=== PATIENT | female | born 1975 | race Caucasian/White ===

== ENCOUNTER → 2017-02-28 | Outpatient (CLI) | payer MEDICARE ==
--- NOTE | 2017-03-01 08:05 | CT ---
EXAMINATION TYPE: CT abdomen w con DATE OF EXAM: 02/28/2017 COMPARISON: Ultrasound abdomen 02/14/2017 INDICATION: Pt states of upper abdominal pain and pancreatic lesions. DLP: 631.5 mGycm, Automated exposure control for dose reduction was used. CONTRAST: 100 mL of Omnipaque 300. Study performed with Oral Contrast TECHNIQUE: Axial images were obtained from above the diaphragm to the pubic rami in the axial plane a t 5 mm thick sections. Reconstructed images are reviewed on the computer in the coronal plane. FINDINGS: Limited CT sections are obtained the lung bases. The lung bases are clear. CT ABDOMEN: Liver: Normal Spleen: Normal Pancreas: A 0.5 cm hypoechoic area, series 3 image 24 is a normal appearance on delayed images series 5. This does not correspond to the size measurements of the ultrasound which measured 4.8 x 4.2 x 3. 3 cm on the ultrasound. Please see below for discussion of a mass adjacent to the pancreas. Adrenal glands: The adrenal glands are normal. Gallbladder: Not identified Kidneys: No masses are evident. No hydronephrosis is present. No cysts are present. Delayed images were obtained through the kidneys, which remain unremarkable. Aorta: Vascular calcification is within the aorta. Inferior vena cava: Normal. Loops of bowel distended with oral contrast are normal. Limited contrast within the duodenum. There a re loops of bowel lacking oral contrast limiting their evaluation. Ultrasound images are reviewed. On the hypoechoic mass in question appears to be within the tail of t he pancreas on ultrasound. With attention to the pancreas on this current CT examination a suspicious mass within the pancreas is not identified on arterial or delayed contrast imaging. However, posteri or to the splenic vein is a slightly hypoechoic lobular area external to the Gerota's fascia and ante rior to the mid right kidney. This potentially could be related to the left adrenal gland extending i nferiorly from the more normal-appearing left adrenal gland superiorly. This area measures 2.9 x 1.3 cm in the axial plane and approximately 2.8 x 4.0 cm in the coronal plane. Additional evaluation with contrast MRI is recommended. IMPRESSIONS: 1. Discrete pancreatic mass is not clearly identified corresponding to the ultrasound findings. Ther e may be a masslike area posterior to the pancreas tail potentially related to the inferior aspect of the adrenal gland. Recommend additional evaluation with MRI with contrast. 2. Subtle hypoechoic area within the anterior portion of the tail of the pancreas on the early phase contrast imaging of this area could be further evaluated with the contrast MRI. This does not corresp ond to the size measurements from the ultrasound.
== END | disposition home or self-care (01) ==
LOC: RADCTMAIN 18:47
PROVIDERS: ATTEND Family Medicine
DX: R19.09 Other intra-abdominal and pelvic swelling, mass and lump (principal)
CPT/HCPCS: 74160; Q9967

== ENCOUNTER → 2017-03-19 | Outpatient (CLI) | payer MEDICARE ==
[2017-03-19 20:32] LABS: Blood Urea Nitrogen 8 mg/dL (7-17); Non-African American GFR(MDRD) >60 (>60 ml/min/1.73 sqM)
--- NOTE | 2017-03-19 21:28 | MR ---
EXAMINATION TYPE: MR abdomen wo/w con DATE OF EXAM: 03/19/2017 COMPARISON: CT abdomen February 28, 2017. Outside abdominal ultrasound 10/17/2016. HISTORY: Abnormal finding on Ultrasound and Cat Scan CONTRAST: Standard multiplanar, multisequence MRI departmental protocol utilizing 20 mL intravenous MultiHance gadolinium contrast. FINDINGS: Pancreas is overall normal in size. No worrisome solid or cystic mass or fluid collection i s present with particular attention to area of ultrasound concern pancreatic tail. Immediately adjace nt to the pancreatic tail there are 2 prominent splenule is redemonstrated measuring up to 1.5 cm in size. Perhaps this is what accounts for ultrasound abnormality. There is slightly lobulated prominenc e in the distal body that is isointense to pancreas on all sequences felt to reflect asymmetry of mcfarland creas not worrisome mass, this is felt to be questionable area on CT. Lung bases are grossly clear. There is tiny 3 mm simple appearing cyst right hepatic lobe on image 29 . Remainder of liver shows no worrisome mass or ductal dilatation. There is stone filled somewhat contracted gallbladder redemonstrated. The spleen and both adrenal glands are felt within normal limits. No worrisome renal mass or hydronep hrosis is seen bilaterally. There is no suspicious bowel dilatation present. There is heterogeneous endplate changes with disc sp pravin narrowing and spurring at L4-L5 level. No concerning abdominal fluid collection is seen. No great er than 1 cm abdominal adenopathy is noted. IMPRESSION: No worrisome distal pancreatic or pancreatic tail mass identified to correspond to the ultrasound and /or CT abnormality. The lesion of ultrasound concern likely reflects adjacent prominent splenule in s plenic hilum.
== END | disposition home or self-care (01) ==
LOC: RADMRIMAIN 19:42
PROVIDERS: ATTEND Family Medicine
DX: R19.09 Other intra-abdominal and pelvic swelling, mass and lump (principal); Z13.9 Encounter for screening, unspecified
CPT/HCPCS: 82565; 84520; 74183; A9577

== ENCOUNTER → 2017-05-09 | Outpatient (CLI) | payer MEDICARE ==
[2017-05-09 16:05] LABS: ALT 45 U/L (9-52); AST 24 U/L (14-36); Alkaline Phosphatase 71 U/L (38-126); Amylase <30 U/L (30-110); Bilirubin, Delta 0.3 mg/dL (0.0-0.2); Total Bilirubin 0.3 mg/dL (0.2-1.3); Total Protein 6.7 g/dL (6.3-8.2)
== END | disposition home or self-care (01) ==
LOC: LABWHC1 15:29
PROVIDERS: ATTEND Surgery
DX: K80.10 Calculus of gallbladder with chronic cholecystitis without obstruction (principal)
CPT/HCPCS: 36415; 80076; 82150; 83690

== ENCOUNTER 2017-05-14 07:48 | Day surgery (SDC) | payer MEDICARE ==
[2017-05-13 14:23] VITALS: BMI 31.3
[~2017-05-14 07:48] MED LIST: DEXAMETHASONE SOD PHOSPHATE 10 MG/ML 1 ML VIAL IV ONE; HEPARIN SODIUM,PORCINE 5,000 UNIT/ML 1 ML VIAL SQ ONE; MIDAZOLAM 2 MG/2 ML VIAL IV PRN; ONDANSETRON 4 MG/2 ML VIAL IVP ONE; SCOPOLAMINE 1.5MG/72HR PATCH TRANSDERM ONE; ceFAZolin 2 GM in SODIUM CHLORIDE 0.9% 100 ML IVPB ONE
[2017-05-14 08:13] VITALS: RESP 16
[2017-05-14] MEDS: LACTATED RINGERS 1,000 ML IV SCH ×2 (08:31→11:02)
[2017-05-14] MEDS ORDERED: HEPARIN SODIUM,PORCINE 5,000 UNIT/ML 1 ML VIAL SQ ONE (10:30)
[2017-05-14] MEDS ORDERED: LIDOCAINE 1% (PF) 10 MG/ML (30 ML SDV) SQ ONE ×2 (10:54)
[2017-05-14] MEDS ORDERED: PROPOFOL 10 MG/ML 20 ML VIAL IV ONE (11:04)
[2017-05-14] MEDS ORDERED: NEOSTIGMINE 1 MG/ML 10 ML VIAL ONE (11:04)
[2017-05-14] MEDS ORDERED: SUCCINYLCHOLINE CHLORIDE 100 MG/5 ML SYR IV ONE (11:04)
[2017-05-14] MEDS ORDERED: fentaNYL (PF) 50 MCG/ML 2 ML AMP ONE (11:04)
[2017-05-14] MEDS ORDERED: GLYCOPYRROLATE 0.2 MG/ML 2 ML VIAL ONE (11:04)
[2017-05-14] MEDS ORDERED: ROCURONIUM BROMIDE 10 MG/ML 10 ML VIAL IV ONE (11:04)
[2017-05-14] MEDS ORDERED: LACTATED RINGERS 1,000 ML IV ONE (11:39)
[2017-05-14] MEDS: HYDROmorphone 1 MG/ML 1 ML SYRINGE IVP PRN ×2 (13:02→13:07)
[2017-05-14] MEDS ORDERED: MEPERIDINE 50 MG/ML SYRINGE IVP ONE (13:25)
[2017-05-14 14:14] VITALS: TEMP 99.4
[2017-05-14 14:36] VITALS: BP 128/72; PULSE 92
--- NOTE | 2017-05-14 16:08 | P.OP ---
Date of Procedure: 05/14/17 Preoperative Diagnosis: Symptomatic cholelithiasis Postoperative Diagnosis: Same Procedure(s) Performed: Laparoscopic cholecystectomy Implants: Anesthesia: KENA Surgeon: Lila Coleman Physiotherapy Assistant #1: Debbi Oliver Estimated Blood Loss (ml): 10 Pathology: other (The gallbladder) Condition: stable Disposition: PACU Indications for Procedure: Symptomatic cholelithiasis Operative Findings: Cholelithiasis Description of Procedure: Patient was taken to the operating room and following induction of general anesthesia the abdomen was prepped and draped in a sterile fashion. A #5 years needle was placed in the left upper quadrant. The abdomen was insufflated to 15 mmHg pressure. A 5 trocar using an Optiview was introduced. The abdomen was evaluated. A #5 port was placed in the supraumbilical area. The camera was changed to this port. #10 trocar was placed in the left upper quadrant. 2# 5 ports were placed in the right side of the abdomen through these the gallbladder was retracted. Patient was placed in reverse Trendelenburg and rotated to the left. The area of the fundus the gallbladder was dissected free. The cystic duct and cystic artery were identified. These were stapled and divided. A posterior artery was identified and this was stapled and divided. The gallbladder was taken down from its peritoneal attachments to the liver bed using electrocautery device. The gallbladder was placed in a Pleatman sac and brought up through the #10 port site. Following this after we were assured that hemostasis was attained a Nish Bray was utilized to close the defect in the fascia at the #10 port site. All trocar sites were removed. The subcutaneous tissues were then closed using 4-0 Monocryl. The patient tolerated the procedure in stable condition. All instrument and sponge counts were correct at the end of the case.
== END 2017-05-14 14:45 | disposition home or self-care (01) ==
LOC: OR 07:48
PROVIDERS: ATTEND Surgery
DX: K80.10 Calculus of gallbladder with chronic cholecystitis without obstruction (principal); F41.9 Anxiety disorder, unspecified; J45.909 Unspecified asthma, uncomplicated; K58.9 Irritable bowel syndrome, unspecified; F40.00 Agoraphobia, unspecified; I10 Essential (primary) hypertension; F17.210 Nicotine dependence, cigarettes, uncomplicated; K21.9 Gastro-esophageal reflux disease without esophagitis; E03.9 Hypothyroidism, unspecified; F31.30 Bipolar disorder, current episode depressed, mild or moderate severity, unspecified; Z88.8 Allergy status to other drugs, medicaments and biological substances; Z79.51 Long term (current) use of inhaled steroids; Z79.899 Other long term (current) drug therapy; Z82.49 Family history of ischemic heart disease and other diseases of the circulatory system
CPT/HCPCS: 81025; 88304; 47562; J2250; J1644; J1100; J2710; J2175; J0690; J2405; J2001; J3010; J1170; J0330; J2704

== ENCOUNTER → 2017-10-29 | Outpatient (CLI) | payer MEDICARE, OTHER ==
--- NOTE | 2017-10-30 11:16 | MM ---
Reason for exam: screening (asymptomatic). Last mammogram was performed 1 year and 11 months ago. History: Benign excisional biopsy of the right breast, October 2014. Benign US RT VAD breast biopsy of the right breast, November 13, 2013. Benign cyst aspiration of the right breast, 2010. Physical Findings: A clinical breast exam by your physician is recommended on an annual basis and results should be correlated with mammographic findings. MG 3D Screening Mammo W/Cad Bilateral CC and MLO view(s) were taken. Prior study comparison: December 01, 2015, bilateral MG 3d screening mammo w/cad. July 12, 2015, right breast MG 3d diag mammo w/cad RT. The breast tissue is heterogeneously dense. This may lower the sensitivity of mammography. Stable benign calcifications. There is no discrete abnormality. No significant changes when compared with prior studies. ASSESSMENT: Benign, BI-RAD 2 RECOMMENDATION: Routine screening mammogram of both breasts in 1 year.
== END | disposition home or self-care (01) ==
LOC: RADMAMWWP 11:18
PROVIDERS: ATTEND Family Medicine
DX: Z12.31 Encounter for screening mammogram for malignant neoplasm of breast (principal)
CPT/HCPCS: 77063; 77067

== ENCOUNTER → 2019-04-30 | Outpatient (CLI) | payer MEDICARE, OTHER ==
--- NOTE | 2019-04-30 10:19 | XR ---
EXAMINATION TYPE: XR chest 2V DATE OF EXAM: 04/30/2019 COMPARISON: NONE HISTORY: Chest pain TECHNIQUE: Frontal and lateral views of the chest are obtained. FINDINGS: There is no focal air space opacity, pleural effusion, or pneumothorax seen. The cardiac silhouette size is within normal limits. The osseous structures are intact. Surgical clips in the u pper abdomen are noted on the lateral view. IMPRESSION: No acute cardiopulmonary process.
--- NOTE | 2019-04-30 11:26 | EST ---
EXERCISE STRESS DATE OF SERVICE: 04/30/2019 AGE: 43 SEX: Female HT: 65" WT: 180 pounds PROTOCOL: Walter STAGE: III DURATION OF EXERCISE: 7 minutes HEART RATE REST: 86 BLOOD PRESSURE REST: 147/75 MAXIMUM HEART RATE ACHIEVED: 165 MAXIMUM BLOOD PRESSURE: 200/86 85% MPHR: 150 100% MPHR: 176 METS: 8 INDICATIONS: Chest pain. CLINICAL INFORMATION: Baseline EKG shows sinus rhythm, normal axis, normal intervals. Patient exercised on Walter protocol for a total of 7 minutes achieving 8 METs, 93% of predicted maximal heart rate without chest pain. At peak exercise, there was 0.[address]-segment depression noted in the inferolateral leads. CONCLUSIONS: 1. Average exercise tolerance. 2. Nondiagnostic EKG changes with exercise. 3. Consider stress echo or stress Cardiolite study for further evaluation. CLAREL / IJN: [id number] /
== END ==
LOC: RADNMMAIN 08:35
PROVIDERS: ATTEND Family Medicine
DX: R07.89 Other chest pain (principal); R06.02 Shortness of breath
CPT/HCPCS: 71046; 93017

== ENCOUNTER → 2019-05-20 | Outpatient (CLI) | payer MEDICARE, OTHER ==
--- NOTE | 2019-05-22 09:30 | MM ---
Reason for exam: screening (asymptomatic). Last mammogram was performed 1 year and 7 months ago. History: Benign excisional biopsy of the right breast, October 2014. Benign US RT VAD breast biopsy of the right breast, November 13, 2013. Benign cyst aspiration of the right breast, 2010. Physical Findings: A clinical breast exam by your physician is recommended on an annual basis and results should be correlated with mammographic findings. MG 3D Screening Mammo W/Cad Bilateral CC and MLO view(s) were taken. Prior study comparison: October 29, 2017, bilateral MG 3d screening mammo w/cad. December 01, 2015, bilateral MG 3d screening mammo w/cad. The breast tissue is heterogeneously dense. This may lower the sensitivity of mammography. Increasing superior right breast density. Some underlying nodularity is suggested on 3D MLO. Ultrasound recommended. ASSESSMENT: Incomplete: need additional imaging evaluation, BI-RAD 0 RECOMMENDATION: Ultrasound of the right breast. [facility] will attempt to contact patient to return for ultrasound.
== END | disposition home or self-care (01) ==
LOC: RADMAMWWP 13:52
PROVIDERS: ATTEND Family Medicine
DX: Z12.31 Encounter for screening mammogram for malignant neoplasm of breast (principal)
CPT/HCPCS: 77063; 77067

== ENCOUNTER → 2019-06-03 | Outpatient (CLI) | payer MEDICARE, OTHER ==
--- NOTE | 2019-06-03 11:12 | USB ---
Reason for exam: additional evaluation requested from abnormal screening. History: Benign excisional biopsy of the right breast, October 2014. Benign US RT VAD breast biopsy of the right breast, November 13, 2013. Benign cyst aspiration of the right breast, 2010. Physical Findings: Nurse Summary: 1.5-2cm area of nodular tissue around scar, irregular, hard, palpable area 11 o'clock near scar (nurse TM). US Breast Workup Limited RT Right complete breast ultrasound includes all four quadrants, the retroareolar region and axilla. Finding demonstrates a 0.7 x 0.6 x 0.5cm solid hypoechoic lesion at 9 o'clock, biopsy recommended and a 1.0 x 0.8 x 0.4cm solid, hypoechoic lesion at 11 o'clock, possible biopsy. These results were verbally communicated with the patient and result sheet given to the patient on 06/03/19. ASSESSMENT: Suspicious, BI-RAD 4 RECOMMENDATION: Ultrasound core biopsy of the right breast. Called Dr. Garcia with mammographic findings and has scheduled an appointment for the patient for 06/17/19 at 3:[address] Coleman. Biopsy scheduled for 06/24/19 at 1:00. PRELIMINARY REPORT CALLED AND FAXED TO DR. COLEMAN ON 06/03/19.
== END | disposition home or self-care (01) ==
LOC: RADUSWWP 09:31
PROVIDERS: ATTEND Family Medicine
DX: R92.8 Other abnormal and inconclusive findings on diagnostic imaging of breast (principal)

== ENCOUNTER → 2019-06-17 | Outpatient (CLI) | payer MEDICARE, OTHER ==
[2019-06-17 15:31] VITALS: BP 149/70; PULSE 94; RESP 18; TEMP 98; BMI 31.9
--- NOTE | 2019-06-17 16:06 | P.GSHP ---
History of Present Illness H&P Date: 06/17/19 Chief Complaint: abnormal mammogram right Rosalinda is a 43-year-old white female who presents for breast evaluation. She had a bilateral mammogram performed on . This revealed an increasing superior right breast density. An ultrasound was recommended and performed on . This revealed 2 areas is 0.7 x 0.5 cm solid lesion at 9:00, and a 1 x 0.8 cm solid lesion at 11:00. The patient states that she did not initially feel anything in her breast however was brought to attention she now feels a lump in her right breast. She has had a prior right breast open biopsy. This was benign. She is not complaining of any pain in her breast. She has no history of any nipple discharge or infections in her breast. She has no history of any trauma to her breast. She drinks a pot of coffee/day. She smokes 1 PPD. She eats chocolate occasionally. Family history: maternal aunt: ovarian cancer Hormonal history: Menarche: 10 G2, 2 abortions periods irregular BCP: 20 years hormones: none Surgical history: 1. Cholecystectomy 2. Breast biopsy 3. Laminectomy 4. Cone biopsy Medical History: 1. HTN Social History: smoke: 1/PPD 30 years alcohol: none drugs: none - Constitutional Constitutional: Denies chills, Denies fever - EENT Comment: needs new glasses Eyes: denies blurred vision, denies pain Ears: deny: decreased hearing, tinnitus Ears, nose, mouth and throat: Reports headache, Denies sore throat - Breasts Breasts: bilateral: as per HPI - Cardiovascular Comment: Patient scheduled for a cardiac echo to rule out a minor MT in the the past Cardiovascular: Reports high blood pressure - Respiratory Comment: smoker - Gastrointestinal Comment: IBS Gastrointestinal: Denies abdominal pain, Denies diarrhea, Denies nausea, Denies vomiting - Genitourinary (Female) Genitourinary: Denies dysuria, Denies hematuria - Menstruation Menstruation: Reports cycle variable - Musculoskeletal Comment: arthritis - Integumentary Integumentary: Denies pruritus, Denies rash - Neurological Neurological: Denies numbness, Denies weakness - Psychiatric Comment: bipolar Psychiatric: Reports anxiety, Reports depression - Endocrine Comment: hypothyroid - Hematologic/Lymphatic Comment: baby aspirin - Allergic/Immunologic Allergic/Immunologic: Reports as per HPI Past Medical History Past Medical History: Asthma, Hypertension, Thyroid Disorder Additional Past Medical History / Comment(s): Chronic back pain. states has 2 discs currently that needs sx on. HX IBS. HX HPV. current nasal polyps. HX ANEMIA History of Any Multi-Drug Resistant Organisms: None Reported Past Surgical History: Back Surgery, Breast Surgery, Cholecystectomy Additional Past Surgical History / Comment(s): right breast benign us core 2013. RT BREAST EXCISIONAL BX BENIGN 2014. SINUS SX. COLD CONE BX. LT LOWER TOOTH PULLED UNDER ANESTHESIA. BACK SX 03/21/2011. LAMINECTOMY Past Anesthesia/Blood Transfusion Reactions: Motion Sickness, Postoperative Nausea & Vomiting (PONV) Additional Past Anesthesia/Blood Transfusion Reaction / Comment(s): AGORAPHOBIC Past Psychological History: Anxiety, Bipolar, Depression Additional Psychological History / Comment(s): AGORAPHOBIC Smoking Status: Current every day smoker Past Alcohol Use History: None Reported Additional Past Alcohol Use History / Comment(s): smokes 1ppd from age 15 Past Drug Use History: None Reported - Past Family History Mother Family Medical History: No Reported History Medications and Allergies Home Medications Medication Instructions Recorded Confirmed Type Benztropine Mesylate [Cogentin] 1 mg PO BID 01/14/15 06/17/19 History Cyclobenzaprine [Flexeril] 10 mg PO TID 01/14/15 06/17/19 History Ferrous Sulfate [Feosol] 325 mg PO DAILY 01/14/15 06/17/19 History LORazepam [Ativan] 1 mg PO HS 01/14/15 06/17/19 History Levothyroxine Sodium [Synthroid] 50 mcg PO QAM 01/14/15 06/17/19 History Multivitamins, Thera [Theragran] 1 each PO DAILY 01/14/15 06/17/19 History Naproxen 500 mg PO BID 01/14/15 06/17/19 History Acetaminophen Tab [Tylenol] 325 mg PO Q4H PRN 05/13/17 06/17/19 History Cholecalciferol (Vitamin D3) 2,000 unit PO DAILY 05/13/17 06/17/19 History [Vitamin D3] Cyanocobalamin (Vitamin B-12) 1,000 mcg PO QAM 05/13/17 06/17/19 History [Vitamin B-12] Dicyclomine [Bentyl] 20 mg PO BID PRN 05/13/17 06/17/19 History LORazepam [Ativan] 0.5 mg PO BID 05/13/17 06/17/19 History OXcarbazepine [Trileptal] 600 mg PO BID 05/13/17 06/17/19 History QUEtiapine FUMARATE [Seroquel Xr] 400 mg PO HS 05/13/17 06/17/19 History QUEtiapine XR [SEROquel XR] 200 mg PO HS 05/13/17 06/17/19 History Candesartan/Hydrochlorothiazid 1 tab PO DAILY 06/17/19 06/17/19 History [Candesartan-Hctz 16-12.5 mg Tb] Topiramate [Topamax] 25 mg PO BID 06/17/19 06/17/19 History Allergies Allergy/AdvReac Type Severity Reaction Status Date / Time divalproex sodium Allergy ANKLE Verified 06/17/19 15:28 [From Depakote] Swelling Surgical - Exam Vital Signs Temp Pulse Resp BP Pulse Ox 98.0 F 94 18 149/70 100 06/17/19 15:29 06/17/19 15:29 06/17/19 15:29 06/17/19 15:29 06/17/19 15:29 BMI 32 - General well developed, well nourished, no distress - Eyes normal ocular movement - ENT no hearing loss, no congestion - Neck no masses, trachea midline - Respiratory normal expansion, normal respiratory effort, clear to auscultation - Cardiovascular Rhythm: regular Heart Sounds: normal: S1, S2 - Abdomen Abdomen: soft, non tender, no guarding, no rigid, no rebound - Integumentary normal turgor - Neurologic no disoriented, no combative - Musculoskeletal normal gait, normal posture - Psychiatric oriented to time, oriented to person, oriented to place, speech is normal, memory intact Breast examination: Right breast: Reveals scar from prior biopsy, no discrete dominant masses or nodules of concern Fibrocystic changes Right axilla: No adenopathy of concern left breast: Multiple incisional exam no dominant mass or nodule is of concern Left axilla: No adenopathy of concern Results Mammogram and ultrasound results reviewed Assessment and Plan Assessment: Impression: 1. Nodularity right breast at biopsy site 2. Abnormal mammogram of right breast 3. Abnormal ultrasound right breast 4. Fibrocystic breast changes 5. Family history of cancer 6. Bipolar 7. Irritable bowel syndrome 8. Nicotine dependence 9. Obesity 10. Echo scheduled to rule out myocardial infarction in the remote past, patient is presently taking aspirin Plan: 1. Ultrasound-guided core biopsy of 2 sites in the right breast 2. Patient has been taking baby aspirin this is a question of remote history of MT in the past she will check with primary care as to whether she can stop the aspirin prior to the biopsy 3. Medical management of medical conditions 4. Follow-up after ultrasound-guided biopsy of areas of concern in the right breast Risks and benefits of the procedure discussed with the patient. This is been scheduled for the near future however she is going to check with primary care to see if she can stop the aspirin prior to the procedure. Cc: Dr. Garcia
== END | disposition home or self-care (01) ==
LOC: WWCWWP 15:19
PROVIDERS: ATTEND Surgery
DX: Z53.9 Procedure and treatment not carried out, unspecified reason (principal)

== ENCOUNTER → 2019-06-24 | Day surgery (SDC) | payer MEDICARE, OTHER ==
[2019-06-24 12:50] VITALS: RESP 16; BMI 30.7
--- NOTE | 2019-06-24 14:49 | USB ---
EXAMINATION TYPE: US biopsy breast VAD RT DATE OF EXAM: 06/24/2019 CLINICAL HISTORY: R92.8 Abnormal Mammogram. TECHNIQUE: Ultrasound guided vaccuum assisted core biopsy of right breast. COMPARISON: 06/03/2019 FINDINGS: The ultrasound guided core biopsy procedure was explained to the patient. The risks, benefits, alternatives were discussed. An informed consent was then obtained. Timeout was performed. The patient was placed in supine positioning for imaging and for the procedure. The overlying skin was prepped with betadine and sterilely draped in usual sterile fashion. 2 sites are identified at the 11:00 (Site A) and 9:00 (Site B) positions. Lidocaine 1% was used as anesthetic into the skin and deeper breast tissue up to area of concern in the breast. A small skin jay was made with surgical scalpel. Site A: Under ultrasound guidance, a 12-gauge vacuum assisted biopsy device was used to obtain 5 core samples. A coil biopsy clip was left in lesion. Site B: Under ultrasound guidance, a 12-gauge vacuum assisted biopsy device was used to obtain 5 core samples. A ribbon biopsy clip was left in lesion. Good hemostasis was obtained with direct pressure. Discharge instructions were discussed with the patient. The patient will follow up with the referring physician for results. Postprocedure mammogram: The patient was transferred to mammography for physician ordered post procedure mammogram for clip placement verification. The clips are in the expected region of the biopsies. The patient tolerated the procedure well without any immediate complication. The patient was discharged to home in stable condition. IMPRESSION: 1. Successful ultrasound guided biopsy right breast, 2 locations. Pathology Results: Benign A. RIGHT BREAST, SITE A ELEVEN O'CLOCK, ULTRASOUND GUIDED CORE BIOPSY: Fibrocystic changes including fibrosis, sclerosing adenosis, cysts, columnar cell change and rare calcifications. B. RIGHT BREAST, SITE B NINE O'CLOCK, ULTRASOUND GUIDED CORE BIOPSY: Fibrocystic changes including fibrosis, cysts, adenosis, and rare calcifications. Recommendation Follow up ultrasound of the right breast in 6 months. DENIA
--- NOTE | 2019-06-24 14:49 | MM ---
EXAMINATION TYPE: US biopsy breast VAD RT DATE OF EXAM: 06/24/2019 CLINICAL HISTORY: R92.8 Abnormal Mammogram. TECHNIQUE: Ultrasound guided vaccuum assisted core biopsy of right breast. COMPARISON: 06/03/2019 FINDINGS: The ultrasound guided core biopsy procedure was explained to the patient. The risks, benef its, alternatives were discussed. An informed consent was then obtained. Timeout was performed. The patient was placed in supine positioning for imaging and for the procedure. The overlying skin w as prepped with betadine and sterilely draped in usual sterile fashion. 2 sites are identified at th e 11:00 (Site A) and 9:00 (Site B) positions. Lidocaine 1% was used as anesthetic into the skin and d eeper breast tissue up to area of concern in the breast. A small skin jay was made with surgical sc alpel. Site A: Under ultrasound guidance, a 12-gauge vacuum assisted biopsy device was used to obtain 5 core samples. A coil biopsy clip was left in lesion. Site B: Under ultrasound guidance, a 12-gauge vacuum assisted biopsy device was used to obtain 5 core samples. A ribbon biopsy clip was left in lesion. Good hemostasis was obtained with direct pressure. Discharge instructions were discussed with the brad valdez. The patient will follow up with the referring physician for results. Postprocedure mammogram: The patient was transferred to mammography for physician ordered post proced ure mammogram for clip placement verification. The clips are in the expected region of the biopsies. The patient tolerated the procedure well without any immediate complication. The patient was dischar ged to home in stable condition. IMPRESSION: 1. Successful ultrasound guided biopsy right breast, 2 locations.
[2019-06-24 15:42] VITALS: BP 140/83; PULSE 81; TEMP 97.7
== END ==
LOC: RADUSWWP 12:04
PROVIDERS: ATTEND Surgery
DX: N60.31 Fibrosclerosis of right breast (principal); N60.21 Fibroadenosis of right breast
CPT/HCPCS: 88305; 77065; 19083; 19084; A4648; J2001

== ENCOUNTER → 2019-06-25 | Outpatient (CLI) | payer MEDICARE, OTHER ==
[~2019-06-25] MED LIST changes: -DEXAMETHASONE SOD PHOSPHATE 10 MG/ML 1 ML VIAL IV ONE; -HEPARIN SODIUM,PORCINE 5,000 UNIT/ML 1 ML VIAL SQ ONE; -MIDAZOLAM 2 MG/2 ML VIAL IV PRN; -ONDANSETRON 4 MG/2 ML VIAL IVP ONE; +REGADENOSON 0.4 MG/5 ML SYRINGE IV ONE; -SCOPOLAMINE 1.5MG/72HR PATCH TRANSDERM ONE; -ceFAZolin 2 GM in SODIUM CHLORIDE 0.9% 100 ML IVPB ONE
--- NOTE | 2019-06-25 11:45 | NM ---
EXAMINATION TYPE: NM stress lexiscan cardiolite DATE OF EXAM: 06/25/2019 COMPARISON: NONE HISTORY: Precordial chest pain and abnormal EKG TECHNIQUE: After the intravenous administration of 10.5 mCi Tc 99m Sestamibi - Cardiolite resting SP ECT images acquired 55 minutes post injection. The patient received 0.4mg Lexiscan, 26.4 mCi Tc 99m Sestamibi - Stress images obtained [address] injection FINDINGS: Review of stress and rest SPECT images demonstrates decreased perfusion anteroseptal wall which may r eflect stress-induced ischemia. Correlate clinically. Gated analysis shows normal wall motion with an estimated left ventricular ejection fraction of 69 %. IMPRESSION: Correlate for stress-induced ischemia anteroseptal wall.
--- NOTE | 2019-06-25 12:22 | P.STRESS ---
- Stress Test Note Stress Test Results/Findings: Exam Performed: NM stress lexiscan cardiolite Exam Date: 06/25/19 Reason for Exam: CHEST PAIN Height: 5 ft 5 in Weight: 83.915 kg Protocol: LEXISCAN Stage: NA Duration of Exercise: NA Resting Heart Rate: 80 Resting Blood Pressure: 149/85 Maximum Achieved Heart Rate: 102 Maximum Achieved Blood Pressure: 149/85 85% PMHR: NA 100% PMHR: NA METS: NA Technologist Comment: Stress Test Results/Findings: This is a 43-year-old female with history of hypertension, family history of ischemic heart disease and also smoking being evaluated for symptoms of chest pain. Stress data: Baseline EKG showed sinus rhythm with normal KS interval and QRS duration. A standard dose of Lexiscan was infused. EKGs taken during and after infusion did not reveal any significant changes from the baseline. Final impression: #1. Negative Lexiscan stress test #2. Report on the nuclear images to begin by the radiologist.
--- NOTE | 2019-06-26 11:51 | EST ---
- Stress Test Note Stress Test Results/Findings: Exam Performed: NM stress lexiscan cardiolite Exam Date: 06/25/19 Reason for Exam: CHEST PAIN Height: 5 ft 5 in Weight: 83.915 kg Protocol: LEXISCAN Stage: NA Duration of Exercise: NA Resting Heart Rate: 80 Resting Blood Pressure: 149/85 Maximum Achieved Heart Rate: 102 Maximum Achieved Blood Pressure: 149/85 85% PMHR: NA 100% PMHR: NA METS: NA Technologist Comment: Stress Test Results/Findings: This is a 43-year-old female with history of hypertension, family history of ischemic heart disease and also smoking being evaluated for symptoms of chest pain. Stress data: Baseline EKG showed sinus rhythm with normal MN interval and QRS duration. A standard dose of Lexiscan was infused. EKGs taken during and after infusion did not reveal any significant changes from the baseline. Final impression: #1. Negative Lexiscan stress test #2. Report on the nuclear images to begin by the radiologist. DENIA
== END | disposition home or self-care (01) ==
LOC: RADNMMAIN 07:55
PROVIDERS: ATTEND Family Medicine
DX: R07.89 Other chest pain (principal)
CPT/HCPCS: 93017; 78452; A9500; J2785

== ENCOUNTER → 2019-07-02 | Outpatient (CLI) | payer MEDICARE, OTHER ==
[2019-07-02 09:56] VITALS: BP 153/89; PULSE 88; RESP 18; TEMP 97.9; BMI 30.7
--- NOTE | 2019-07-02 10:32 | P.PN ---
Subjective Progress Note Date: 07/02/19 Principal diagnosis: Fibrocystic breast changes, patient comes in today for results of core biopsy 2 areas in the right breast Rosalinda is a 43-year-old white female who presents for breast evaluation. She had a bilateral mammogram performed on . This revealed an increasing superior right breast density. An ultrasound was recommended and performed on . This revealed 2 areas is 0.7 x 0.5 cm solid lesion at 9:00, and a 1 x 0.8 cm solid lesion at 11:00. The patient states that she did not initially feel anything in her breast however was brought to attention she now feels a lump in her right breast. She has had a prior right breast open biopsy. This was benign. She is not complaining of any pain in her breast. She has no history of any nipple discharge or infections in her breast. She has no history of any trauma to her breast. She drinks a pot of coffee/day. She smokes 1 PPD. She eats chocolate occasionally. She underwent ultrasound-guided core biopsy of 2 sites in the right breast on 06-24-19. The site at 11:00 revealed fibrocystic changes, fibrosis, sclerosing adenosis, cyst, columnar cell change in her calcifications The site at 9:00 revealed fibrocystic changes, fibrosis, cysts, adenosis, and rare calcifications the patient states following the procedure she developed some ecchymosis of the breast as well as some blistering at the tape sites Family history: maternal aunt: ovarian cancer Hormonal history: Menarche: 10 G2, 2 abortions periods irregular BCP: 20 years hormones: none Surgical history: 1. Cholecystectomy 2. Breast biopsy 3. Laminectomy 4. Cone biopsy Medical History: 1. HTN Social History: smoke: 1/PPD 30 years alcohol: none drugs: none - Constitutional Constitutional: Denies chills, Denies fever - EENT Comment: needs new glasses Eyes: denies blurred vision, denies pain Ears: deny: decreased hearing, tinnitus Ears, nose, mouth and throat: Reports headache, Denies sore throat - Breasts Breasts: bilateral: as per HPI - Cardiovascular Comment: Patient scheduled for a cardiac echo to rule out a minor CT in the the past Cardiovascular: Reports high blood pressure - Respiratory Comment: smoker - Gastrointestinal Comment: IBS Gastrointestinal: Denies abdominal pain, Denies diarrhea, Denies nausea, Denies vomiting - Genitourinary (Female) Genitourinary: Denies dysuria, Denies hematuria - Menstruation Menstruation: Reports cycle variable - Musculoskeletal Comment: arthritis - Integumentary Integumentary: Denies pruritus, Denies rash - Neurological Neurological: Denies numbness, Denies weakness - Psychiatric Comment: bipolar Psychiatric: Reports anxiety, Reports depression - Endocrine Comment: hypothyroid - Hematologic/Lymphatic Comment: baby aspirin - Allergic/Immunologic Allergic/Immunologic: Reports as per HPI Past Medical History Past Medical History: Asthma, Hypertension, Thyroid Disorder Additional Past Medical History / Comment(s): Chronic back pain. states has 2 discs currently that needs sx on. HX IBS. HX HPV. current nasal polyps. HX ANEMIA History of Any Multi-Drug Resistant Organisms: None Reported Past Surgical History: Back Surgery, Breast Surgery, Cholecystectomy Additional Past Surgical History / Comment(s): right breast benign us core 2013. RT BREAST EXCISIONAL BX BENIGN 2014. SINUS SX. COLD CONE BX. LT LOWER TOOTH PULLED UNDER ANESTHESIA. BACK SX 03/21/2011. LAMINECTOMY Past Anesthesia/Blood Transfusion Reactions: Motion Sickness, Postoperative Nausea & Vomiting (PONV) Additional Past Anesthesia/Blood Transfusion Reaction / Comment(s): AGORAPHOBIC Past Psychological History: Anxiety, Bipolar, Depression Additional Psychological History / Comment(s): AGORAPHOBIC Smoking Status: Current every day smoker Past Alcohol Use History: None Reported Additional Past Alcohol Use History / Comment(s): smokes 1ppd from age 15 Past Drug Use History: None Reported - Past Family History Mother Family Medical History: No Reported History Objective - Vital Signs Vital signs: Vital Signs Temp 97.9 F 07/02/19 09:53 Pulse 88 07/02/19 09:53 Resp 18 07/02/19 09:53 BP 153/89 07/02/19 09:53 Pulse Ox 99 07/02/19 09:53 Intake & Output 07/01/19 07/02/19 07/02/19 18:59 06:59 18:59 Weight 83.915 kg - Exam BMI 30.8 - Constitutional General appearance: Present: average body habitus - EENT Eyes: Present: EOMI ENT: Present: hearing grossly normal - Neck Details: no adenopathy of concern - Respiratory Details: bilateral wheezing at the bases Respiratory: bilateral: CTA - Cardiovascular Rhythm: regular Heart sounds: normal: S1, S2 - Integumentary Integumentary Comment(s): Incision site no evidence of infection Mild ecchymosis at site of biopsy In the medial aspect of the breast there. Then 2 blisters near were taped was located no evidence of infection at this time Integumentary: Present: normal turgor - Musculoskeletal Musculoskeletal: Present: gait normal - Psychiatric Psychiatric: Present: A&O x's 3, appropriate affect - Additional findings Additional findings: Right breast: Biopsy site clean and dry mild ecchymosis Hematoma within the breast approximately 2 cm x 1 cm in size was located near prior scar from prior open biopsy Assessment and Plan Assessment: Impression: 1. Ultrasound-guided core biopsy of 2 sites of concern in the right breast the films were reviewed with the radiologist and the areas of concern were felt to be adequately sampled both of these were benign 2. Fibrocystic breast changes 3. Ecchymosis at biopsy site 3. Hematoma at biopsy site 4. Blistering related to tape was appears to be healing 5. Patient drinks 1 pot of coffee per day and continues to smoke 6. Wheezing bilateral lung bases Plan: 1. I have spent time counseling the patient regarding the caffeine and smoking and the fibrocystic breast changes at this time the patient is going to continue these practices 2. Skin care as needed for the blistering sites 3. Close surveillance to assure the ecchymosis resolves 4. Close surveillance to assure the hematoma results of this does not resolve within the next 2 months patient will call and see us again sooner 5. Ultrasound of the right breast in 6 months with physician exam 6. Bilateral lung wheezing I discussed this with the patient and the patient states at this time she wishes to continue smoking negative follow with her primary care doctor have counseled to recommend stopping smoking I have spent 25 minutes with the and at least 50% being face to face counselling and explanation of fibrocystic treatment. CC: Dr. Garcia
== END | disposition home or self-care (01) ==
LOC: WWCWWP 09:48
PROVIDERS: ATTEND Surgery
DX: Z53.9 Procedure and treatment not carried out, unspecified reason (principal)

== ENCOUNTER → 2020-06-08 | Outpatient (CLI) | payer MEDICARE, OTHER ==
--- NOTE | 2020-06-09 07:49 | MM ---
Reason for exam: additional evaluation requested from prior study. Last mammogram was performed 11 months ago. History: Benign US biopsy breast VAD RT of the right breast, June 24, 2019. Benign US biopsy breast add'l VAD RT of the right breast, June 24, 2019. Benign excisional biopsy of the right breast, October 2014. Benign US RT VAD breast biopsy of the right breast, November 13, 2013. Benign cyst aspiration of the right breast, 2010. Physical Findings: Nurse did not find any significant physical abnormalities on exam. MG 3D Diag Mammo W/Cad DANN Bilateral CC and MLO view(s) were taken. Prior study comparison: June 24, 2019, right breast MG diagnostic mammo RT wo CAD. May 20, 2019, bilateral MG 3d screening mammo w/cad. The breast tissue is extremely dense which could obscure a lesion on mammography. Stable benign calcifications. There is chronic nodularity bilaterally. Asymmetric density right breast. No significant new findings when compared with previous films. These results were verbally communicated with the patient and result sheet given to the patient on 06/08/20. ASSESSMENT: Incomplete: need additional imaging evaluation, BI-RAD 0 RECOMMENDATION: Ultrasound of the right breast.
--- NOTE | 2020-06-09 07:51 | USB ---
Reason for exam: additional evaluation requested from abnormal screening. History: Benign US biopsy breast VAD RT of the right breast, June 24, 2019. Benign US biopsy breast add'l VAD RT of the right breast, June 24, 2019. Benign excisional biopsy of the right breast, October 2014. Benign US RT VAD breast biopsy of the right breast, November 13, 2013. Benign cyst aspiration of the right breast, 2010. US Breast RT Right complete breast ultrasound includes all four quadrants, the retroareolar region and axilla. Finding demonstrates a 5 x 2 x 5mm cystic lesion at 12 o'clock, a 6 x 4 x 5mm oval, hypoechoic lesion at 9 o'clock, a 4 x 3 x 3mm cystic lesion at 10 o'clock and a 10 x 5 x 10mm hypoechoic lesion at 11 o'clock. Multiple cysts visualized. These results were verbally communicated with the patient and result sheet given to the patient on 06/08/20. ASSESSMENT: Benign, BI-RAD 2 RECOMMENDATION: Routine screening mammogram of both breasts in 1 year.
== END | disposition home or self-care (01) ==
LOC: RADMAMWWP 14:14
PROVIDERS: ATTEND Surgery
DX: R92.8 Other abnormal and inconclusive findings on diagnostic imaging of breast (principal)
CPT/HCPCS: 77066; 76641; G0279; 77062

== ENCOUNTER → 2020-06-17 | Outpatient (CLI) | payer MEDICARE, OTHER ==
[2020-06-17 14:21] VITALS: BP 145/84; PULSE 92; RESP 18; TEMP 98.1
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
== END | disposition home or self-care (01) ==
LOC: WWCWWP 13:45
PROVIDERS: ATTEND Surgery

== ENCOUNTER → 2022-06-14 | Outpatient (CLI) | payer MEDICARE, OTHER ==
--- NOTE | 2022-06-14 15:01 | MM ---
Reason for Exam: Clinical finding. Last mammogram was performed 2 year(s) and 0 month(s) ago. Patient History: Menarche at age 10. Perimenopausal. 10/2014, Benign Excisional Biopsy on the right side. 2010, Benign Cyst Aspiration on the right side. 06/24/2019, Benign Core Biopsy on the right side. 06/24/2019, Benign Core Biopsy on the right side. 11/13/2013, Benign Core Biopsy on the right side. Risk Values: Jeannette 5 year model risk: 1.5%. NCI Lifetime model risk: 11.4%. Tissue Density: The breast tissue is heterogeneously dense. This may lower the sensitivity of mammography. Findings: Analyzed By CAD. Anterior upper-outer quadrant global asymmetry right breast remains unchanged. 2 microclips a round microcalcification right breast redemonstrated from prior biopsies. Palpable marker placed along the upper outer quadrant of the right breast. On the left, asymmetric density lateral posterior CC view remains unchanged. No significant change from prior exams. Overall Assessment: Incomplete: need additional imaging evaluation, BI-RAD 0 Management: Diagnostic Breast Ultrasound of the right breast. Upper outer quadrant including the patient's palpable site. Results were given to the patient verbally at the time of exam. Electronically signed and approved by: José Miguel Muniz M.D. Radiologist
--- NOTE | 2022-06-14 15:48 | USB ---
Patient History: Menarche at age 10. Perimenopausal. 10/2014, Benign Excisional Biopsy on the right side. 2010, Benign Cyst Aspiration on the right side. 06/24/2019, Benign Core Biopsy on the right side. 06/24/2019, Benign Core Biopsy on the right side. 11/13/2013, Benign Core Biopsy on the right side. Risk Values: Jeannette 5 year model risk: 1.5%. NCI Lifetime model risk: 11.4%. Technique: Method: Targeted. Prior Study Comparison: 05/20/2019 Bilateral Screening Mammogram, [facility]. 06/24/2019 Right Diagnostic Mammogram, [facility]. 06/08/2020 Bilateral Diagnostic Mammogram, [facility]. Findings: The upper outer quadrant of the right breast, the axilla of the right breast and the retroareolar of the right breast were scanned. Targeted ultrasound upper outer quadrant right breast 9:00 to 12:00 including the subareolar region and axilla. Particular attention to the 11:00 palpable site shows very dense tissues. At the 9:00 position, there is an oval hypoechoic nodule measuring 6 x 5 x 4 mm, unchanged compared to 06/08/2020. Benign 5 mm cyst cluster at 12:00, 4 cm from the nipple. No other solid or cystic lesion. A couple benign-appearing lymph nodes in the right axilla. Overall Assessment: Benign, BI-RAD 2 Management: Screening Mammogram of both breasts in 1 year. Further clinical management of any suspicious palpable abnormality. Ultrasound shows very dense tissue at the palpable site. Patient should continue monthly self breast exams. Results were given to the patient verbally at the time of exam. Electronically signed and approved by: José Miguel Muniz M.D. Radiologist
== END | disposition home or self-care (01) ==
LOC: RADMAMWWP 14:17
PROVIDERS: ATTEND Family Medicine
DX: N63.10 Unspecified lump in the right breast, unspecified quadrant (principal); Z78.0 Asymptomatic menopausal state
CPT/HCPCS: 77066; 76642; G0279; 77062

== ENCOUNTER → 2022-11-21 | Outpatient (CLI) | payer MEDICARE ==
--- NOTE | 2022-11-21 14:38 | US ---
EXAMINATION TYPE: US venous doppler duplex LE BI DATE OF EXAM: 11/21/2022 2:26 PM COMPARISON: NONE CLINICAL HISTORY: M79.89. edema SIDE PERFORMED: Bilateral TECHNIQUE: The lower extremity deep venous system is examined utilizing real time linear array sonog kyleigh with graded compression, doppler sonography and color-flow sonography. VESSELS IMAGED: Common Femoral Vein Deep Femoral Vein Greater Saphenous Vein * Femoral Vein Popliteal Vein Small Saphenous Vein * Proximal Calf Veins (* superficial vessels) Right Leg: Negative for DVT Left Leg: Negative for DVT IMPRESSION: No evidence for DVT.
== END | disposition home or self-care (01) ==
LOC: RADUSWWP 13:41
PROVIDERS: ATTEND Family Medicine
DX: M79.89 Other specified soft tissue disorders (principal)
CPT/HCPCS: 93970

== ENCOUNTER → 2024-06-15 | Outpatient (CLI) | payer MEDICARE, OTHER ==
--- NOTE | 2024-06-15 14:21 | MM ---
Reason for Exam: Screening (asymptomatic). Last mammogram was performed 2 year(s) and 0 month(s) ago. Patient History: Menarche at age 10. Patient has no children. Postmenopausal. 10/2014, Benign Excisional Biopsy on the right side. 2010, Benign Cyst Aspiration on the right side. 06/24/2019, Benign Core Biopsy on the right side. 06/24/2019, Benign Core Biopsy on the right side. 11/13/2013, Benign Core Biopsy on the right side. Paternal cousin had breast cancer, age 61. Risk Values: Jeannette 5 year model risk: 1.9%. NCI Lifetime model risk: 16.2%. Prior Study Comparison: 06/24/2019 Right Diagnostic Mammogram, [facility]. 06/08/2020 Bilateral Diagnostic Mammogram, [facility]. 06/14/2022 Bilateral MG 3D diag mammo w/cad DANN, [facility]. Tissue Density: The breasts are heterogeneously dense, which may obscure small masses. Findings: Analyzed By CAD. Right breast biopsy clip. Right breast: There is no suspicious group of microcalcifications or new suspicious mass. Left breast: There is no suspicious group of microcalcifications or new suspicious mass. Overall Assessment: Benign, BI-RAD 2 Management: Screening Mammogram of both breasts in [address] [facility] will attempt to contact patient to return for supplemental views and ultrasound if indicated. Patient should continue monthly self-breast exams. A clinical breast exam by your physician is recommended on an annual basis. This exam should not preclude additional follow-up of suspicious palpable abnormalities. Note on Jeannette scores and lifetime risk: 1. A Jeannette score greater than 3% is considered moderate risk. If this is the case, consider specialist referral to assess eligibility for a risk reducing agent. 2. If overall lifetime risk for the development of breast cancer is 20% or higher, the patient may qualify for future screening with alternating mammogram and breast MRI. [facility], , 06/15/2024 2:18 PM. Electronically signed and approved by: Trino Lemus DO
== END | disposition home or self-care (01) ==
LOC: RADMAMWWP 10:51
PROVIDERS: ATTEND Internal Medicine
DX: Z12.31 Encounter for screening mammogram for malignant neoplasm of breast
CPT/HCPCS: 77063; 77067

== ENCOUNTER → 2024-06-16 | Outpatient (CLI) | payer MEDICARE, OTHER ==
--- NOTE | 2024-06-16 15:07 | CA ---
Transthoracic Echo Report Name: Rosalinda Holland Age: 48 Gender: F : 1975 Exam Date: 06/16/2024 13:21 Exam Location: [facility] Ht (in): 65 Wt (lb): 190 Ordering Physician: Hever Mendez MD Attending/Referring Phys: Hever Mendez MD [employer] Erica Patel RDCS Procedure CPT: Indications: I34.0 nonrheumatic mitral valve regurgitation Cardiac Hx: Technical Quality: Fair Contrast 1: Total Dose (mL): Contrast 2: Total Dose (mL): MEASUREMENTS (Male / Female) Normal Values 2D ECHO LV Diastolic Diameter PLAX 3.7 cm 4.2 - 5.9 / 3.9 - 5.3 cm LV Systolic Diameter PLAX 2.3 cm IVS Diastolic Thickness 1.3 cm 0.6 - 1.0 / 0.6 - 0.9 cm LVPW Diastolic Thickness 1.2 cm 0.6 - 1.0 / 0.6 - 0.9 cm LV Relative Wall Thickness 0.7 RV Internal Dim ED PLAX 2.4 cm LA Volume 44.7 cm??? 18 - 58 / 22 - 52 cm??? LA Volume Index 22.1 cm???/m??? 16 - 28 cm???/m??? M-MODE Aortic Root Diameter MM 2.5 cm LA Systolic Diameter MM 3.8 cm LA Ao Ratio MM 1.5 AV Cusp Separation MM 1.8 cm DOPPLER AV Peak Velocity 148.5 cm/s AV Peak Gradient 8.8 mmHg AV Mean Velocity 106.8 cm/s AV Mean Gradient 5.0 mmHg AV Velocity Time Integral 26.8 cm LVOT Peak Velocity 99.5 cm/s LVOT Peak Gradient 4.0 mmHg LVOT Velocity Time Integral 18.4 cm MV Area PHT 3.6 cm??? MR Peak Velocity 480.7 cm/s MR Peak Gradient 92.4 mmHg MR Flow Rate PISA 142.3 cm???/s Mitral E Point Velocity 92.2 cm/s Mitral A Point Velocity 86.9 cm/s Mitral E to A Ratio 1.1 MV Deceleration Time 212.4 ms MV E' Velocity 7.6 cm/s Mitral E to MV E' Ratio 12.1 TR Peak Velocity 242.5 cm/s TR Peak Gradient 23.5 mmHg Right Ventricular Systolic Press 26.6 mmHg FINDINGS Left Ventricle Mildly increased left ventricular wall thickness. Left ventricular cavity size normal. Normal left ventricular systolic function with no obvious regional wall motion abnormalities. Grade 1 diastolic dysfunction. Left ventricular ejection fraction is estimated at 55-60 %. Right Ventricle Normal right ventricular size and function. Right ventricular systolic pressure within normal limits. Right Atrium Normal right atrial size. Left Atrium Normal left atrial size. Mitral Valve Structurally normal mitral valve. Mild mitral valve prolapse. [id number] mitral regurgitation. Aortic Valve Trileaflet aortic valve. No aortic valve stenosis or regurgitation. Tricuspid Valve Structurally normal tricuspid valve. Mild tricuspid regurgitation. Pulmonic Valve Structurally normal pulmonic valve. Pericardium No pericardial effusion. Aorta Normal size aortic root and proximal ascending aorta. CONCLUSIONS Mild increased left ventricular wall thickness Left ventricular ejection fraction 55-60% RVSP 26 Mild to moderate mitral regurgitation Mild tricuspid regurgitation No pericardial effusion Previewed by: Dr. Bryant Patel DO (Electronically Signed) Final Date: 16 June 2024 15:07
== END | disposition home or self-care (01) ==
LOC: RADECHMAIN 13:07
PROVIDERS: ATTEND Internal Medicine
CPT/HCPCS: 93306

== ENCOUNTER → 2024-11-06 | Outpatient (CLI) | payer MEDICARE, OTHER ==
--- NOTE | 2024-11-06 13:27 | CTL ---
EXAMINATION TYPE: CT Low Dose Lung DATE OF EXAM: 11/06/2024 1:20 PM COMPARISON: None. CLINICAL INDICATION: Female, 49 years old with history of SACROILIITIS, NOT ELSEWHERE CLASSIFIED; , h istory of tobacco use. TECHNIQUE: Multiple axial non-contrast scans were obtained from approximately the lung apices through the upper abdomen. Coronal and sagittal reformatted images were obtained. Low dose technique was uti lized. MIP were created on a separate workstation and submitted for review. CT DLP: 77 mGycm, Automated exposure control for dose reduction was used. CT Contrast: Contrast used: None Oral contrast used: None FINDINGS: Lack of intravenous contrast and low dose technique limits the evaluation of the vascular and soft ti ssue structures. LUNGS: No evidence of pulmonary fibrosis. No evidence of focal consolidation, pneumothorax or pleural effusion. Centrilobular emphysema changes. Nodules: RUL: None. RML: None. RLL: None. TRENT: None. LLL: Calcified granuloma series 9 image 50.. AIRWAY: Patent and unremarkable. HEART: Size within normal limits. Mild coronary artery calcifications present. MEDIASTINUM: No gross evidence of adenopathy. VASCULATURE: No aortic aneurysm. MUSCULOSKELETAL: No acute osseous abnormalities SOFT TISSUES/LYMPH NODES: Unremarkable. LOWER NECK: No significant findings. UPPER ABDOMEN: 2 small splenules identified. The gallbladder is surgically absent. IMPRESSION: 1. No clinically significant pulmonary nodules. 2. Mild emphysema. CT LUNG RAD AND CT CHEST RECOMMENDATION: Lung-Rad 2 Benign Appearance or Behavior: Continue annual sc reening with LDCT in 12 months. S Modifier (other clinically significant findings): None Recommend smoking cessation (if current smoker), or continuation of smoking cessation (if prior smoke r). Annual screening for lung cancer with low-dose computed tomography is recommended in adults ages 55 to 77 years who have a 30 pack-year smoking history and currently smoke or have quit within the pa st 15 years. Screening should be discontinued once a person has not smoked for 15 years or develops a health problem that substantially limits life expectancy or the ability or willingness to have curat cristóbal lung surgery. Lung rads 2021 [email or web address] [email or web address], , 11/06/2024 1:23 PM
== END | disposition home or self-care (01) ==
LOC: RADCTMAIN 12:48
PROVIDERS: ATTEND Internal Medicine
DX: Z12.2 Encounter for screening for malignant neoplasm of respiratory organs (principal); J43.9 Emphysema, unspecified; F17.210 Nicotine dependence, cigarettes, uncomplicated
CPT/HCPCS: 71271